=== PATIENT | male | born 1960 | race American Indian/Alaskan Native ===

== ENCOUNTER 2018-09-21 07:22 | Emergency (ER) | payer OTHER ==
[2018-09-21 07:31] VITALS: BP 121/78
[2018-09-21] MEDS ORDERED: TORADOL IM ONE (07:59)
[2018-09-21] MEDS ORDERED: REGLAN PO ONE (07:59)
[2018-09-21] MEDS ORDERED: DECADRON IM ONE (08:00)
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
== END 2018-09-21 09:32 | disposition home or self-care (01) ==
LOC: ED 07:22
DX: R51 Headache (principal); F17.200 Nicotine dependence, unspecified, uncomplicated
CPT/HCPCS: 70450; 96372; 99283; J1100; J1885

== ENCOUNTER 2019-04-30 04:28 | Emergency (ER) | payer OTHER ==
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
[2019-04-30] MEDS ORDERED: TETANUS,DIPH,PERTUSS(ACELL) VACCINE 0.5 ML SYRINGE IM ONE (06:34)
[2019-04-30] MEDS ORDERED: KETOROLAC 30 MG/1 ML INJ IV ONE (06:34)
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
[2019-04-30 08:22] VITALS: BP 121/86
== END 2019-04-30 08:12 | disposition home or self-care (01) ==
LOC: ED 04:28
DX: S02.31XA Fracture of orbital floor, right side, initial encounter for closed fracture (principal); S02.19XA Other fracture of base of skull, initial encounter for closed fracture; E11.9 Type 2 diabetes mellitus without complications; F17.200 Nicotine dependence, unspecified, uncomplicated; Z79.899 Other long term (current) drug therapy; V28.0XXA Motorcycle driver injured in noncollision transport accident in nontraffic accident, initial encounter; Y93.89 Activity, other specified; Y92.410 Unspecified street and highway as the place of occurrence of the external cause; Y99.8 Other external cause status
CPT/HCPCS: 70450; 70486; 90471; 90715; 96365; 96375; 99284; J1885